=== PATIENT | female | born 1985 | race Caucasian/White ===

== ENCOUNTER 2023-02-02 05:46 | Day surgery (SDC) | payer BC, MEDICAID, SELFPAY ==
[2023-02-01 15:10] VITALS: BMI 26.6
[2023-02-02] VITALS (18 sets, daily range): BP systolic 101–133; BP diastolic 67–88; PULSE 55–108; RESP 14–18; TEMP 36.1; O2SAT 96–100
[2023-02-02] MEDS: sodium chloride 0.9% 1,000 ML 30 ML IV ×2 (06:14→12:04)
[2023-02-02] MEDS: acetaminophen 1,000 MG/100 ML PIGGYBACK 400 MG IV (06:16)
[2023-02-02] MEDS: scopolamine 1.5 Patch 1 PATCH TRANSDERMA (06:18)
[2023-02-02] MEDS: gabapentin 300 mg Capsule PO (06:20)
[2023-02-02] MEDS: phenazopyridine 100 mg Tablet 200 MG PO (06:20)
[2023-02-02] MEDS: CELEcoxib 200 mg Capsule 400 MG PO (06:20)
--- NOTE | 2023-02-02 07:09 | W.PM.OPSUD ---
Surgery/Procedure H&P Update DATE OF PROCEDURE: February 02, 2023 DATE H&P PERFORMED: 01/29/23 H&P UPDATE INFORMATION: I have reviewed H&P completed within last 30 days, I have examined patient prior to procedure and No changes to prior documentation PREOP DIAGNOSIS: dysmenorrhea, desires permanent sterilization PLANNED PROCEDURE: Operation Date: 02/02/23 07:00 Proposed Procedures p Laparoscopic bilateral Salpingectomy(Not Applicable) - Gabriela Jackson MD s Hysteroscopy w/ Myosure(Not Applicable) - Gabriela Jackson MD s Dilation And Curettage (D&C)(Not Applicable) - Gabriela Jackson MD Related Problem List Diagnoses (1) Dysmenorrhea: (2) Sterilization consult:
[2023-02-02] MEDS: ceFAZolin 2,000 MG in sodium chloride 0.9% (plus) 50 ML 100 MG IV (07:17)
--- NOTE | 2023-02-02 08:44 | P.OP_ITS ---
Operative Report Date of procedure: February 02, 2023 Pre-op diagnosis: Preop Diagnosis dysmenorrhea, desires permanent sterilization Post-op diagnosis: same Post-op findings: 11 week sized uterus. large cervical fibroid and uterine fibroid. Uterine prolapse grade 2. Normal appearing tubes and ovaries Procedure done: laparoscopic bilateral salpingectomy, hysteroscopy, dilation and curettage with myosure Specimens removed/disposition: bilateral fallopian tubes to pathology Surgeon: Renetta Anesthesia: General Estimated blood loss (mL): 5 IV fluids (mL): 400 Urine output (mL): 350 Complications: none Findings: hysteroscopy deficit:135 Condition: stable Disposition: PACU Procedure: The patient was taken to the operating room where general anesthesia was administered and found to be adequate. She was prepped and draped in the normal sterile fashion in the dorsal lithotomy position in [facility]. A Isaac catheter was placed. A weighted speculum was placed into the vagina and the anterior lip of the cervix grasped with a single-tooth tenaculum. A Gimahhot uterin e manipulator was placed. The gloves were changed and attention was turned to the laparoscopic portion of the case. A 5 mm supraumbilical incision was made. The 5 mm trocar was placed using the easy view trocar. Intra-abdominal placement was confirmed and CO2 gas was used to insufflate the abdomen. Using direct visualization and illumination of the abdominal wall, two 5 mm incisions were made low and lateral. One on the left and one on the right. The 5mm trochars were then placed under direct visualization. Using the uterine manipulator and the grasper, the fallopian tubes were identified. Using the laparoscopic cautery, the fallopian tube was clamped cauterized and cut. First on the right, then on the left. There was excellent hemostasis post removal of the bilateral tubes. Pictures were taken. All instruments were removed. The abdomen was desufflated. The incisions were closed with 4-0 Vicryl. Attention was then turn to the hysteroscopy portion of the procedure. A weighted speculum was placed into the vagina and the anterior lip of the cervix grasped with a single-tooth tenaculum. The uterus was sounded to 11 cm. The cervix was dilated to 16 Ben[place]. The hysteroscope was advanced into the endometrial cavity. There was excessive tissue visualized. The MyoSure device was activated and the tissue was removed. All instruments were removed. The patient tolerated the procedure well. Sponge lap and needle counts were correct x3. She was taken to the recovery room in stable condition.
--- NOTE | 2023-02-02 08:58 | PM.DCS ---
Discharge Providers Date of Admission: 02/02/23 Date of Discharge: February 02, 2023 Attending Provider at Admission: Dr. Jackson Attending Provider at Discharge: Gabriela Jackson MD Primary Care Provider: Mali Thomas Diagnoses at Discharge Discharge Diagnosis (1) Dysmenorrhea: Status: Acute (2) Sterilization consult: Status: Acute Hospital Course Hospital Course The patient was admitted for surgery. She did well postoperatively and was ready for discharge Discharge Data Studies Completed and Pending Pending at discharge Category Date Time Status ORHCG [OR HCG Qualitative Urine] Routine Lab 02/02/23 07:55 Received Urine Culture Routine Lab 02/02/23 07:55 Received Pathology: Surgical [PTH] Routine Pth 02/02/23 08:33 Received Vitals Last Vital Signs Temp 97 F L 02/02/23 06:01 Pulse 79 02/02/23 06:01 Resp 18 02/02/23 06:01 BP 118/86 02/02/23 06:18 Pulse Ox 99 02/02/23 06:01 O2 Del Method Room Air 02/02/23 06:04 Discharge Plan Discharge Patient Disposition: Home Condition: Stable Prescriptions: New hydrocodone-acetaminophen 5-325 mg tablet 1 tab PO Q6H PRN (Reason: pain) Qty: 20 0RF Discharge Orders: Discharge Order (Routine); Ordered 02/02/23 Ordered By: Gabriela Jackson Discharge Attestations Time Spent in Discharge Care*: less than 30 min Quality Metrics Clinical Quality Measures [ No reported AMI, CVA or VTE this stay] Coding Level of Care Code Acute Code for Chg Fwd Diagnoses Dysmenorrhea N94.6 Sterilization consult Z30.09
[2023-02-02 09:06] LABS: OR HCG Qualitative Urine Negative (Negative)
[2023-02-02] MEDS: fentaNYL 50 mcg/mL INJ 2mL IVP ×2 (09:15→09:30)
[2023-02-02] MEDS: ondansetron 2 mg/ML SDV 2 mL 4 MG IVP (09:32)
--- NOTE | 2023-02-02 10:18 | ANES.PREANE2 ---
Pre-Anesthetic Assessment Height/Weight: Height 1.57 m Weight 66.224 kg Temp Pulse Resp BP Pulse Ox O2 Del Method O2 Flow Rate 97 F L 61 18 102/69 97 Room Air 6 02/02/23 09:46 02/02/23 10:03 02/02/23 10:03 02/02/23 10:03 02/02/23 10:03 02/02/23 10:03 02/02/23 09:05 Preop Diagnosis: dysmenorrhea, desires permanent sterilization Operation Date: 02/02/23 07:00 Proposed Procedures p Laparoscopic bilateral Salpingectomy(Not Applicable) - Gabriela Jackson MD s Hysteroscopy w/ Myosure(Not Applicable) - Gabriela Jackson MD s Dilation And Curettage (D&C)(Not Applicable) - Gabriela Jackson MD Familial anesthetic complications: none Was Beta Shelia taken within 24 hours: N/A Was Clonidine taken within 24 hours: N/A Last intake: Intake Last Liquid Date 02/01/23 Last Liquid Time 20:00 Last Solid Date 02/01/23 Last Solid Time 20:00 Social Tobacco and No alcohol Exam alert, oriented x 3 and regular rate & rhythm Airway Submandibular: within normal limits Cervical ROM: within normal limits Mallampati: Class II Dentition: false Anesthetic Plan ASA status: 2 Anesthesia: General Medications/Allergies Home Medications Medication Instructions Recorded Confirmed Last Taken Type hydrocodone 5 mg-acetaminophen 325 1 tab PO Q6H PRN pain #20 tabs 02/02/23 Unknown Rx mg tablet Allergies Allergy/AdvReac Type Severity Reaction Status Date / Time No Known Allergies Allergy Unverified 01/29/23 08:21 Current Medications Generic Name Dose Route Start Last Admin Trade Name Freq PRN Reason Stop Dose Admin Sodium Chloride 1,000 mls @ 30 mls/hr 02/02/23 06:00 02/02/23 06:14 Sodium Chloride 0.9% IV 02/03/23 05:59 30 mls/hr .Q24H GINA Administration Ondansetron HCl 4 mg 02/02/23 08:38 02/02/23 09:32 Ondansetron 2 Mg/Ml Sdv 2 Ml IVP 02/03/23 08:38 4 mg Q5M PRN Administration Nausea PACU Phase I [facility] Anesthesia Medical History No pertinent past medical history neghx: htn,dm,thyroid,dvt/pe PCP: Mali Thomas NP Surgical History No pertinent past surgical history Family History Grandfather Diabetes maternal Father Hypertension Denies family history of Colon cancer Ovarian cancer Heart disease Breast cancer Uterine cancer Thyroid condition Stroke Hyperchloremia Female Reproductive History Date of last menstrual period: 11/19/22 Data Anesthesia Cardiac Studies: No Data to Display
--- NOTE | 2023-02-02 10:55 | PC.NURSE ---
dr. de la fuente notified of pt cont to complain of nausea and dizziness when moving head. orders received.
[2023-02-02] MEDS: ePHEDrine 50 mg/mL Inj 25 MG IM (11:08)
--- NOTE | 2023-02-02 11:40 | PC.NURSE ---
pt cont dizzy. doesn't want benadryl at this time. states i'm already sleepy.
--- NOTE | 2023-02-02 11:45 | PC.NURSE ---
pt wanting benadryl now. med ordered. dr de la fuente into see patient.
--- NOTE | 2023-02-02 12:08 | PC.NURSE ---
pt states feels much better refusing benadryl at this time. eating crackers and taking sprite.
--- NOTE | 2023-02-02 17:42 | ANE.PACU2 ---
Inpatient post-anesthesia follow up: Airway intact: Yes Vital signs: Temperature 97 F Pulse Rate 66 Respiratory Rate 18 Blood Pressure 133/88 Pulse Oximetry 98 Oxygen Delivery Me thod Room Air Oxygen Flow Rate 6 Fraction of Inspir ed Oxygen Hydration adequate: Yes Nausea and vomiting: Yes Pain level: 2 Mental status: Baseline Additional Comments: Difficult PONV control, Zofran, benadryl, decadron, scope patch, IM ephedrine...finally propofol bolus (20mg) helped.
== END 2023-02-02 12:28 | disposition home or self-care (01) ==
PROVIDERS: Anesthesiology; PCP Nurse Practitioner Family; Visit Provider Obstetrics & Gynecology
PROC: (CPT 58661; principal; 2023-02-02 07:00)
PROC: 0UJD8ZZ Inspection of Uterus and Cervix, Via Natural or Artificial Opening Endoscopic (ICD-10-PCS; CPT 58555; 2023-02-02 07:00)
PROC: (CPT 58120; 2023-02-02 07:00)
DX: Z30.2 Encounter for sterilization (principal); N81.2 Incomplete uterovaginal prolapse; D25.9 Leiomyoma of uterus, unspecified; N83.8 Other noninflammatory disorders of ovary, fallopian tube and broad ligament
CPT/HCPCS: 58558; 58661; 81025; 84703; 87086; 88302; 88305; J0131; J0690; J1100; J2250; J2370; J2405; J2704; J3010; J3490; J7030